=== PATIENT | female | born 1970 | race African-American/Black ===

== ENCOUNTER 2017-07-09 09:30 | Emergency (ER) | payer OTHER ==
[~2017-07-09] VITALS: Ht 165.1 cm; Wt 177.3 kg
[~2017-07-09 09:30] MED LIST: ALLERGY RELIEF180 MG PO; DYAZIDE, MA1 CAPSULE PO; FERGON324 MG PO; FIORICET WI1 CAPSULE PO; GLUCOPHAGE XR750 MG PO; LOSARTAN POTASS50 MG PO; METOPROLOL SUC200 MG PO; NASONEX17 GM BOTH NARES; NYAMYC60 GM TP; PREDNISONE50 MG PO; PROMETHAZINE HC25 M1 PO; SIMVASTATIN20 MG PO; VITAMIN D31000 UNIT PO; VOLTAREN 1% GE100 GM TP
[2017-07-09] MEDS ORDERED: TRIAMTERENE-HC1 EAC1 PO (09:57)
[2017-07-09] MEDS ORDERED: EZETIMIBE10 MG PO (10:00)
[2017-07-09 10:28] LABS: HEMATOCRIT 34.7 % (36.0-46.0); MCH 26.7 PG (29.0-34.0); MCHC 32.3 G/DL (30.0-36.0); MCV 82.8 FL (83-99); MEAN PLAT.VOLUME 8.9 uM^3 (9.5-12.4); PLATELET COUNT 272 K/uL (156-360); RBC DIS.WIDTH-CV 14.6 % (11.8-14.6); RBC DIS.WIDTH-SD 43.8 % (39-53); RED BLOOD COUNT 4.19 M/uL (3.80-5.20); WHITE BLOOD COUNT 3.6 K/uL (4.1-10.2)
[2017-07-09 10:42] LABS: CHLORIDE 103 mEq/L (99-109); POTASSIUM 3.7 mEq/L (3.7-5.4); SODIUM 139 mEq/L (136-147)
[2017-07-09 10:43] LABS: GLUCOSE 101 mg/dL (70-99)
[2017-07-09 10:45] LABS: ANION GAP 8 MEQ/L (2-14)
[2017-07-09 10:47] LABS: GFR ESTIMATE (CALCULATED) > 59 mL/min/
[2017-07-09 10:48] LABS: UREA NITROGEN (BUN) 12 mg/dL (9-23)
[2017-07-09] MEDS ORDERED: NEURONTIN300 MG PO (13:00)
[2017-07-09] MEDS ORDERED: NORCO 7.5/321 TABLET PO (13:00)
[2017-07-09 13:21] VITALS: BP 186/89
== END 2017-07-09 13:22 | disposition home or self-care (01) ==
LOC: EME 09:30
PROVIDERS: Nurse Practitioner Family
DX: R60.0 Localized edema (principal); G62.9 Polyneuropathy, unspecified; I10 Essential (primary) hypertension; E66.01 Morbid (severe) obesity due to excess calories; Z68.44 Body mass index [BMI] 60.0-69.9, adult; E11.9 Type 2 diabetes mellitus without complications; Z86.718 Personal history of other venous thrombosis and embolism
CPT/HCPCS: 71020; 80048; 83880; 85027; 93005; 99281; 99285; J3010

== ENCOUNTER 2018-01-17 12:49 | Emergency (ER) | payer OTHER ==
[~2018-01-17] VITALS: Ht 167.6 cm; Wt 169.2 kg
[~2018-01-17 12:49] MED LIST changes: +EZETIMIBE10 MG PO; +NEURONTIN300 MG PO; +NORCO 7.5/321 TABLET PO; +TRIAMTERENE-HC1 EAC1 PO
[2018-01-17 16:40] LABS: HEMATOCRIT 34.7 % (36.0-46.0); HEMOGLOBIN 11.5 G/DL (11.9-15.5); MCH 27.5 PG (29.0-34.0); MCHC 33.1 G/DL (30.0-36.0); PLATELET COUNT 296 K/uL (156-360); RBC DIS.WIDTH-CV 15.6 % (11.8-14.6); RBC DIS.WIDTH-SD 46.9 % (39-53); RED BLOOD COUNT 4.18 M/uL (3.80-5.20); WHITE BLOOD COUNT 5.9 K/uL (4.1-10.2)
[2018-01-17] MEDS ORDERED: PERCOCET 5/31 TABLET PO (17:57)
[2018-01-17 18:07] VITALS: BP 159/77
== END 2018-01-17 18:35 | disposition home or self-care (01) ==
LOC: EME 12:49
PROVIDERS: Physician Assistant
DX: M25.462 Effusion, left knee (principal); M17.12 Unilateral primary osteoarthritis, left knee; M22.2X2 Patellofemoral disorders, left knee; E11.9 Type 2 diabetes mellitus without complications; Z79.84 Long term (current) use of oral hypoglycemic drugs; Z95.810 Presence of automatic (implantable) cardiac defibrillator; Z86.718 Personal history of other venous thrombosis and embolism; Z88.8 Allergy status to other drugs, medicaments and biological substances; Z88.0 Allergy status to penicillin
CPT/HCPCS: 73564; 85027; 86140; 99281; 99284